=== PATIENT | male | born 1935 ===

== ENCOUNTER 2020-06-07 05:20 | Day surgery (SDC) | payer MEDICARE, BC ==
[2020-06-07] VITALS (12 sets, daily range): BP systolic 112–160; BP diastolic 56–101; PULSE 50–87; TEMP 97.6–98.7
[~2020-06-07] VITALS: Ht 182.9 cm; Wt 81.4 kg
[2020-06-07] MEDS ORDERED: TYLENOL 500MG500 MG PO (06:23)
[2020-06-07] MEDS ORDERED: TOPROL XL100 MG PO (06:24)
[2020-06-07] MEDS ORDERED: ZESTRIL40 MG PO (06:25)
[2020-06-07] MEDS ORDERED: DUTASTERIDE PO (06:26)
[2020-06-07] MEDS ORDERED: [UNRECOGNIZED DRUG - OTHER] PO (06:26)
[2020-06-07] MEDS ORDERED: ARICEPT 5MG PO (06:27)
[2020-06-07] MEDS ORDERED: NORVASC 5MG5 MG/TAB PO (06:27)
[2020-06-07] MEDS ORDERED: NEURONTIN300 MG/CAP PO (06:27)
[2020-06-07] MEDS ORDERED: ASPIRIN 81M81 MG/TA2 PO (06:28)
[2020-06-07] MEDS ORDERED: MAGNESIUM TOP (06:38)
--- NOTE | 2020-06-07 06:43 | NUR ---
ALTHOUGH PATIENT ABLE TO ANSWER QUESTIONS COHERENTLY, HE SHOWED SIGNS OF FORGETFULNESS.
--- NOTE | 2020-06-07 11:15 | NUR ---
First visit from the heater planer operator. No needs right now.
--- NOTE | 2020-06-07 18:50 | NUR ---
Patient resting in bed at this time. CBI at a slow rate and is light pink and clear. Patient is tolerating PO intake well, no complaints of nausea. Patient continues to deny pain, call light within reach.
[2020-06-08 04:48] VITALS: BP 119/58; PULSE 47; TEMP 97.8
--- NOTE | 2020-06-08 06:30 | NUR ---
Pt resting in bed and his urine is still pink tinged. No clots noted in tubing. Pt has had no complaints of pain.
[2020-06-08 08:07] VITALS: BP 129/62; PULSE 56; TEMP 97.7
[2020-06-08 12:15] VITALS: BP 99/86; PULSE 53; TEMP 97.9
--- NOTE | 2020-06-08 13:38 | NUR ---
Orders received to prime and pull CBI. 30ml saline removed from balloon. Pt voided pink urine immediately. Pt tolerated well.
--- NOTE | 2020-06-08 14:55 | NUR ---
Supervisor [employer] met with patient to discuss discharge planning. Patient lives alone at [facility] and sees Dr. Holden for primary care. Patient has medications delivered to his apartment from [facility] with no difficulties. Patient has a cane and walker at home but does not normally need them. Patient is independent with ADLS and plans to return to his apartment at discharge. Patient has two children: Shalini (ph#[phone]) and Lucian. Patient reports he has DPOA-HC completed which designates his children but SW did not locate copy in EMR. MARILUZ contacted Eugenio at [facility] who will fax over a copy if they have one. MARILUZ will continue to follow as needed.
--- NOTE | 2020-06-08 16:00 | NUR ---
PATIENTS LEDBETTER CATHETER DISCONTINUED BY STUDENT NURSE THIS AFTERNOON. PATIENT HAS VOIDED 1 CUP. PATIENT ENCOURAGED TO DRINK FLUIDS AND ATTEMPT TO VOID AGAIN. PATIENT ABLE TO COMPLETE 2 MORE CUPS. DISCHARGE INSTRUCTIONS REVIEWED WITH PATIENT BY CHARGE NURSE. INT DISCONTINUED.
[2020-06-08 16:02] VITALS: BP 113/53; PULSE 48; TEMP 97.7
--- NOTE | 2020-06-08 17:37 | NUR ---
DAUGHTER CALLED AND NOTIFED THAT THE PATIENT IS ALMOST DONE WITH HIS 6 CUP ROUTINE, AND SHE CAN HEAD TO [facility] TO PICK HIM UP FOR DISCHARGE.
--- NOTE | 2020-06-08 18:30 | NUR ---
Patient ready to discharge. His daughter her to take him home. I called doctor Erika intervention specialist doctor to review with discharge medication. Patient to hold his ASA until follow up appt. We reviewed home med list with last dose taken. Patient aware of follow up appt. We discussed diet restrictions as well as activity restritions. Patient wheeled out with all belongings & denies questions and or concenrs.
--- NOTE | 2020-06-08 19:00 | NUR ---
PATIENT PERSONAL BELONGINGS GATHERED. PATIENT TAKEN TO PERSONAL VEHICLE VIA WHEELCHAIR BY SURGICAL STAFF. PATIENT DISCHARGED.
== END 2020-06-08 19:00 | disposition home or self-care (01) ==
LOC: SDCO 05:20 → SURG 09:00 → SDCO 06-08 19:00
DX: N40.1 Benign prostatic hyperplasia with lower urinary tract symptoms (principal); N32.0 Bladder-neck obstruction; N21.0 Calculus in bladder; I10 Essential (primary) hypertension; M19.90 Unspecified osteoarthritis, unspecified site; E78.00 Pure hypercholesterolemia, unspecified; R33.9 Retention of urine, unspecified; N39.0 Urinary tract infection, site not specified; Z79.82 Long term (current) use of aspirin; Z88.0 Allergy status to penicillin; E78.5 Hyperlipidemia, unspecified
CPT/HCPCS: OP; J0690; J1100; J2250; J2405; J2704; J3010; J7120